=== PATIENT | female | born 1995 | race Caucasian/White ===

== ENCOUNTER → 2020-02-29 13:01 | Outpatient (BNVA) | payer OTHER, SELFPAY | PROVIDERS: Visit Provider Advanced Practice Midwife | DX: Z30.42 Encounter for surveillance of injectable contraceptive (principal) | CPT/HCPCS: 96372 ==

== ENCOUNTER → 2020-05-27 13:09 | Outpatient (BNVA) | payer OTHER, SELFPAY | PROVIDERS: PCP Internal Medicine; Visit Provider Advanced Practice Midwife | DX: Z30.42 Encounter for surveillance of injectable contraceptive (principal) | CPT/HCPCS: 96372; 99211; J1050 ==

== ENCOUNTER 2020-06-03 15:32 | Outpatient (REF) | payer OTHER, SELFPAY | END 2020-06-03 15:33 | disposition home or self-care (01) | LOC: HO.LAB 15:32 | PROVIDERS: Visit Provider Internal Medicine | DX: Z20.822 Contact with and (suspected) exposure to COVID-19 (principal) | CPT/HCPCS: 36415; C9803; U0003 ==

== ENCOUNTER 2020-06-14 15:34 | Outpatient (REF) | payer OTHER, SELFPAY | END 2020-06-14 15:35 | disposition home or self-care (01) | LOC: HO.LAB 15:34 | PROVIDERS: Visit Provider Internal Medicine | DX: Z20.822 Contact with and (suspected) exposure to COVID-19 (principal) | CPT/HCPCS: 36415; C9803; U0003 ==

== ENCOUNTER → 2020-08-12 12:42 | Outpatient (BNVA) | payer OTHER, SELFPAY | PROVIDERS: PCP Internal Medicine; Visit Provider Advanced Practice Midwife | DX: Z30.42 Encounter for surveillance of injectable contraceptive (principal) | CPT/HCPCS: 96372; 99211; J1050 ==

== ENCOUNTER 2020-11-11 10:30 | Outpatient (REF) | payer OTHER, SELFPAY ==
[2020-11-11 17:52] LABS: CT PCR NOT DETECTED (Not Detect.); NG PCR NOT DETECTED (Not Detect.)
== END 2020-11-11 10:31 | disposition home or self-care (01) ==
LOC: HO.LAB 10:30
PROVIDERS: Visit Provider Advanced Practice Midwife
DX: Z30.42 Encounter for surveillance of injectable contraceptive (principal); Z20.2 Contact with and (suspected) exposure to infections with a predominantly sexual mode of transmission
CPT/HCPCS: 87491; 87591; 96372

== ENCOUNTER → 2021-02-10 10:52 | Outpatient (BNVA) | payer OTHER, SELFPAY | PROVIDERS: Visit Provider Advanced Practice Midwife | DX: Z30.42 Encounter for surveillance of injectable contraceptive (principal) | CPT/HCPCS: 96372; 99212 ==

== ENCOUNTER → 2021-05-12 12:58 | Outpatient (BNVA) | payer OTHER, SELFPAY | PROVIDERS: Visit Provider Advanced Practice Midwife | DX: Z30.42 Encounter for surveillance of injectable contraceptive (principal) | CPT/HCPCS: 96372; 99211 ==

== ENCOUNTER → 2021-08-11 13:03 | Outpatient (BNVA) | payer OTHER, SELFPAY | PROVIDERS: PCP Internal Medicine; Visit Provider Advanced Practice Midwife | DX: Z30.42 Encounter for surveillance of injectable contraceptive (principal) | CPT/HCPCS: 96372; 99211 ==

== ENCOUNTER 2021-12-19 14:14 | Outpatient (REF) | payer OTHER, SELFPAY ==
[2021-12-20 07:02] LABS: CT PCR NOT DETECTED (Not Detect.); NG PCR NOT DETECTED (Not Detect.)
== END 2021-12-19 14:15 | disposition home or self-care (01) ==
LOC: HO.LAB 14:14
PROVIDERS: Visit Provider Advanced Practice Midwife
DX: Z01.419 Encounter for gynecological examination (general) (routine) without abnormal findings (principal); R30.0 Dysuria; B96.20 Unspecified Escherichia coli [E. coli] as the cause of diseases classified elsewhere; Z11.3 Encounter for screening for infections with a predominantly sexual mode of transmission; Z11.8 Encounter for screening for other infectious and parasitic diseases
CPT/HCPCS: 87086; 87088; 87186; 87491; 87591; 96372

== ENCOUNTER → 2022-03-13 15:02 | Outpatient (BNVA) | payer OTHER, SELFPAY | PROVIDERS: PCP Internal Medicine; Visit Provider Advanced Practice Midwife | DX: Z30.42 Encounter for surveillance of injectable contraceptive (principal) | CPT/HCPCS: 96372; 99211 ==

== ENCOUNTER → 2022-05-29 12:58 | Outpatient (BNVA) | payer OTHER, SELFPAY | PROVIDERS: PCP Internal Medicine; Visit Provider Advanced Practice Midwife | DX: Z30.42 Encounter for surveillance of injectable contraceptive (principal) | CPT/HCPCS: 96372 ==

== ENCOUNTER → 2022-08-27 15:23 | Outpatient (BNVA) | payer OTHER, SELFPAY | PROVIDERS: PCP Internal Medicine; Visit Provider Advanced Practice Midwife | DX: Z30.42 Encounter for surveillance of injectable contraceptive (principal) | CPT/HCPCS: 96372; 99211 ==

== ENCOUNTER → 2022-11-19 12:53 | Outpatient (BNVA) | payer OTHER, SELFPAY | PROVIDERS: PCP Internal Medicine; Visit Provider Advanced Practice Midwife | DX: Z30.42 Encounter for surveillance of injectable contraceptive (principal) | CPT/HCPCS: 96372; 99211 ==

== ENCOUNTER 2023-02-08 12:59 | Outpatient (AMB) | payer OTHER, SELFPAY ==
--- NOTE | 2023-02-08 13:09 | AM.OFFVISNUR ---
Intake Vital Signs 02/08/23 13:11 Height 4 ft 10 in Weight 59.449 kg BMI 27.4 Intake Visit Reasons: depo Allergies No Known Allergies [No Known Allergies*] Allergy (Verified 12/19/21 13:59) Nursing Note Keely is here for her Depot-Provera inj as scheduled. Pt reports hx of irregular menses and reports she has had moderate bleeding daily since July. Pt informed she may need to be seen if this continues. next annual exam 03/18/23. Office Procedures Depo Questionnaire If YES to any of the following questions, please consult a provider. Date of last injection: 11/30/22 Date of last menstrual period: 07/27/22 Date of last gynecology exam: 12/19/21 Menstrual pattern since last injection has been: Normal Irregular bleeding?: Yes Breast lumps or other breast changes?: No Changes in weight or appetite?: No Depression or changes in mood?: No Abnormal hair growth or loss?: No Skin problems (rash, acne, discoloration)?: No Pain at the injection site?: No Headaches?: No Nervousness?: No Abdominal pain or cramping?: No Dizziness or nausea?: No Fatigue or weakness?: No Decrease in sexual drive?: No Chest pain or shortness of breath?: No Swelling in arms or legs?: No Any other problems or concerns?: hx of irregular menses, has had bleeding since July Form completed by?: John Sauceda LPN Office Meds Depo-Provera 150 mg/mL intramuscular syringe Performing Provider: Libertad Bejarano CNM [place] [facility] [place] [facility] Administered by: Radha Sauceda LPN on 02/08/23 13:11 Dose Route Admin Location Dispensed Lot Number Expiration Date [facility] Genetic Counsellor 150 mg IM rt deltoid 1 mL [id number] 08/14/24 49350-460-77 LUCIEN WHALEY Coding Level of Care Code Established Pt Est Pt Level 1 (25240) Patient Type Established History Problem Focused Exam Problem Focused Medical Decision Making Straight Forward Time Spent (min) 15 Assessment & Plan Assessment & Plan Orders: Orders AMB Medroxyprogesterone Injection Patient Supplied Today Z30.42 - Encounter for surveillance of injectable contraceptive
[2023-02-08 13:11] VITALS: BMI 27.4
== END 2023-02-08 13:09 | disposition home or self-care (01) ==
PROVIDERS: PCP Internal Medicine; Visit Provider Advanced Practice Midwife
DX: Z30.42 Encounter for surveillance of injectable contraceptive (principal)

== ENCOUNTER → 2023-02-08 12:59 | Outpatient (BNVA) | payer OTHER, SELFPAY | PROVIDERS: PCP Internal Medicine; Visit Provider Advanced Practice Midwife | DX: Z30.42 Encounter for surveillance of injectable contraceptive (principal) | CPT/HCPCS: 96372; 99211; J1050 ==

== ENCOUNTER 2023-04-26 13:00 | Outpatient (AMB) | payer OTHER, SELFPAY ==
[2023-04-26 13:35] VITALS: BMI 28.1
--- NOTE | 2023-04-26 13:35 | AM.OFFVISNUR ---
Intake Vital Signs 04/26/23 13:35 Height 4 ft 10 in Weight 134 lb 4 oz BMI 28.1 Intake Visit Reasons: Depo Radiology Supervisor Required: No Allergies No Known Allergies [No Known Allergies*] Allergy (Verified 12/19/21 13:59) Is last menstrual period known: No Post menopausal: No Patient : No Nursing Note Keely is here for her scheduled Depo provera injection. She reports she has been bleeding with cramping x2 months. Bleeding is like a period but has become heavier as well. Pt does not get her menses d/t being on Depo. Discussed with Dr Knutson, will get UPT (negative) and if negative will proceed with injection. Pt tolerated injection well. Pt will need to schedule problem visit for AUB. Pt verbalizes understanding and agrees with plan. No further questions. Office Procedures Depo Questionnaire If YES to any of the following questions, please consult a provider. Date of last injection: 02/08/23 Date of last gynecology exam: 12/19/21 Menstrual pattern since last injection has been: Not Applicable test in office results: Negative Irregular bleeding?: Yes Breast lumps or other breast changes?: No Changes in weight or appetite?: No Depression or changes in mood?: No Abnormal hair growth or loss?: No Skin problems (rash, acne, discoloration)?: No Pain at the injection site?: No Headaches?: No Nervousness?: No Abdominal pain or cramping?: Yes Dizziness or nausea?: No Fatigue or weakness?: No Decrease in sexual drive?: No Chest pain or shortness of breath?: No Swelling in arms or legs?: No Form completed by?: Silva Li director of quantitative research Meds Depo-Provera 150 mg/mL intramuscular syringe Performing Provider: Libertad Bejarano CNM [place] [facility] [place] [facility] Administered by: Silva Li on 04/26/23 13:41 Dose Route Admin Location Dispensed Lot Number Expiration Date [facility] Truck Supervisor 150 mg IM right deltoid 1 mL [id number] 02/13/25 Results AMB Test Urine AMB Test Urine Negative Last Edit by Silva Li on 04/26/23 13:41 Coding Level of Care Code Established Pt Est Pt Level 1 (99911) Patient Type Established History Problem Focused Medical Decision Making Straight Forward Time Spent (min) 20 Assessment & Plan Assessment & Plan Orders: Orders AMB Medroxyprogesterone Injection Patient Supplied Today Z30.42 - Encounter for surveillance of injectable contraceptive
== END 2023-04-26 13:34 | disposition home or self-care (01) ==
PROVIDERS: PCP Internal Medicine; Visit Provider Advanced Practice Midwife
DX: Z30.42 Encounter for surveillance of injectable contraceptive (principal)

== ENCOUNTER → 2023-04-26 13:00 | Outpatient (BNVA) | payer OTHER, SELFPAY | PROVIDERS: PCP Internal Medicine; Visit Provider Advanced Practice Midwife | DX: Z30.42 Encounter for surveillance of injectable contraceptive (principal) | CPT/HCPCS: 96372; 99211; J1050 ==

== ENCOUNTER 2023-07-22 13:03 | Outpatient (AMB) | payer BC, SELFPAY ==
[2023-07-22 13:29] VITALS: BMI 28.6
--- NOTE | 2023-07-22 13:29 | AM.OFFVISNUR ---
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 Pt reports AUB since her last Depo injection 04/26/23 and bleeding stopped 07/15/23. 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 She reports cramping at times as well. Pt denies new medical problems. Pt is scheduled for next AG 08/04/23 with Libertad. Pt tolerated injection well. She will schedule next injection in 12 weeks. Office Procedures Depo Questionnaire If YES to any of the following questions, please consult a provider. Date of last injection: 04/26/23 Date of last gynecology exam: 12/19/21 Menstrual pattern since last injection has been: Not Applicable Irregular bleeding?: Yes Breast lumps or other breast changes?: No Changes in weight or appetite?: No Depression or changes in mood?: No Abnormal hair growth or loss?: No Skin problems (rash, acne, discoloration)?: No Pain at the injection site?: No Headaches?: No Nervousness?: No Abdominal pain or cramping?: Yes Dizziness or nausea?: No Fatigue or weakness?: No Decrease in sexual drive?: No Chest pain or shortness of breath?: No Swelling in arms or legs?: No Any other problems or concerns?: AUB Form completed by?: Silva Li RN Office Meds Depo-Provera 150 mg/mL intramuscular syringe Performing Provider: Libertad Bejarano CNM Performing Location: [facility] [place] [facility] Administered by: Silva Li on 07/22/23 13:39 Dose Route Admin Location Dispensed Lot Number Expiration Date [facility] Purchase Analyst 150 mg IM left deltoid 1 mL [id number] 02/13/25 88206-458-82 MYLAN Coding Level of Care Code Established Pt Est Pt Level 1 (44080) Patient Type Established History Problem Focused Medical Decision Making Straight Forward Time Spent (min) 12 Assessment & Plan Assessment & Plan Orders: Orders AMB Medroxyprogesterone Injection Patient Supplied Today Z30.42 - Encounter for surveillance of injectable contraceptive Medications: Refilled medroxyprogesterone 150 mg IM Q12W 12 weeks 1 mL 0RF
== END 2023-07-22 13:30 | disposition home or self-care (01) ==
LOC: HO.HWS 13:04
PROVIDERS: PCP Internal Medicine; Visit Provider Advanced Practice Midwife
DX: Z30.42 Encounter for surveillance of injectable contraceptive (principal)

== ENCOUNTER → 2023-07-22 13:03 | Outpatient (BNVA) | payer BC, SELFPAY | PROVIDERS: PCP Internal Medicine; Visit Provider Advanced Practice Midwife | DX: Z30.42 Encounter for surveillance of injectable contraceptive (principal) | CPT/HCPCS: 96372; 99211; J1050 ==

== ENCOUNTER 2023-10-12 12:53 | Outpatient (AMB) | payer BC, SELFPAY ==
[2023-10-12 13:04] VITALS: BMI 30.5
--- NOTE | 2023-10-12 13:04 | AM.OFFVISNUR ---
Intake Vital Signs 10/12/23 13:04 Height 4 ft 10 in Weight 66.224 kg BMI 30.5 Intake Visit Reasons: DEPO Allergies No Known Allergies [No Known Allergies*] Allergy (Verified 12/19/21 13:59) Nursing Note Keely is here today for her scheduled Annual exam. She denies any problems. Tolerated inj well follow up in 12 wks for next inj and in November for her AG. Office Procedures Depo Questionnaire If YES to any of the following questions, please consult a provider. Date of last injection: 07/22/23 Date of last menstrual period: 10/07/23 Date of last gynecology exam: 12/19/22 Menstrual pattern since last injection has been: Light Irregular bleeding?: Not Applicable Breast lumps or other breast changes?: No Changes in weight or appetite?: No Depression or changes in mood?: No Abnormal hair growth or loss?: No Skin problems (rash, acne, discoloration)?: No Pain at the injection site?: No Headaches?: No Nervousness?: No Abdominal pain or cramping?: No Dizziness or nausea?: No Fatigue or weakness?: No Decrease in sexual drive?: No Chest pain or shortness of breath?: No Swelling in arms or legs?: No Form completed by?: John Sauceda LPN Office Meds Depo-Provera 150 mg/mL intramuscular syringe Performing Provider: Libertad Bejarano CNM Performing Location[place] [facility] [place] [facility] Administered by: Radha Sauceda LPN on 10/12/23 13:04 Dose Route Admin Location Dispensed Lot Number Expiration Date [facility] Washer Hand 150 mg IM rt. deltoid 1 mL [id number] 01/14/25 76882-404-46 [employer] [facility] Coding Level of Care Code Established Pt Est Pt Level 1 (15416) Patient Type Established History Problem Focused Exam Problem Focused Medical Decision Making Straight Forward Time Spent (min) 20 Assessment & Plan Assessment & Plan Orders: Orders AMB Medroxyprogesterone Injection Patient Supplied Today Z30.42 - Encounter for surveillance of injectable contraceptive Medications: New Depo-Provera (medroxyprogesterone) 150 mg IM ONCE 1 mL 0RF NS Z30.42 - Encounter for surveillance of injectable contraceptive
== END 2023-10-12 13:02 | disposition home or self-care (01) ==
LOC: HO.HWS 12:53
PROVIDERS: PCP Internal Medicine; Visit Provider Advanced Practice Midwife
DX: Z30.42 Encounter for surveillance of injectable contraceptive (principal)

== ENCOUNTER → 2023-10-12 12:53 | Outpatient (BNVA) | payer BC, SELFPAY | PROVIDERS: PCP Internal Medicine; Visit Provider Advanced Practice Midwife | DX: Z30.42 Encounter for surveillance of injectable contraceptive (principal) | CPT/HCPCS: 96372; 99211; J1050 ==

== ENCOUNTER 2023-11-26 13:00 | Outpatient (REF) | payer BC, SELFPAY | END 2023-11-26 13:01 | disposition home or self-care (01) | LOC: HO.LNP 13:00 | PROVIDERS: PCP Internal Medicine; Visit Provider Advanced Practice Midwife | DX: N89.8 Other specified noninflammatory disorders of vagina (principal); R39.89 Other symptoms and signs involving the genitourinary system; R31.9 Hematuria, unspecified | CPT/HCPCS: 81003 ==

== ENCOUNTER 2023-11-26 13:00 | Outpatient (AMB) | payer BC, SELFPAY ==
[2023-11-26 13:04] VITALS: BMI 30.4
--- NOTE | 2023-11-26 13:04 | A.OFFVIS_ITS ---
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 Doing well with no concerns: bladder fullness after emptying. She tries to eat healthy and stays active with exercise. Bled in July daily for 2 months. On Depo. She denies any contraindications to control such as: migraines with aura, history of DVT or pulmonary emboli, high blood pressure, liver disease, thrombolic disorders, Lupus, +ADDIS, breast cancer, or smoking. Currently is sexually active. Admits to internal irritation, thick and clumpy discharge at times. STI screening offered; she accepts. Denies family history of breast, ovarian or colon cancer. [facility] Medical History Tibia/fibula fracture Depression with anxiety PTSD (post-traumatic stress disorder) Insomnia Asthma ADHD Family History Father Cardiac disease Diabetes Paternal Grandfather Cardiac disease Blood clotting disorder Mother Immune deficiency disorder Social History Household Members: Family Housing: House Alcohol intake: never Patient Tobacco Use Status: Never used Tobacco Sexual orientation: Straight/Heterosexual Gender identity: Female Female Reproductive History Menstrual Age of Menarche: 13 control method: progesterone injection Total pregnancies: 2 Full term: 1 Number of Living Children: 1 Ab induced: 1 Date of last pap smear: 09/05/19 Review of Systems Const All systems reviewed & are unremarkable except as noted in HPI and below Reports as per HPI Eyes Reports no additional complaints ENT Reports no additional complaints Card Reports no additional complaints Resp Reports no additional complaints GI Reports as per HPI and Reports no additional complaints Reports as per HPI Musc Reports no additional complaints Skin/Breast Reports as per HPI Neuro Reports no additional complaints Psych Reports no additional complaints Endo Reports no additional complaints Leif/Lymph Reports no additional complaints Aller/Immun Reports no additional complaints Physical Exam Vital Signs: BMI result Body Mass Index 30.4 Const General: cooperative, healthy appearing, no acute distress, well developed and alert Orientation/consciousness: patient oriented x3 HEENT Head: Yes normal to inspection Eyes General: appearance normal, both eyes and all related structures Neck Neck: Yes normal visual inspection Thyroid: Thyroid normal Chest Chest palpation & inspection: normal inspection of the chest and other (no puckering, dimpling, peau de orange, retraction, discharge, masses) Breast/axilla inspection: normal inspection of the breasts Breast/axilla palpation: normal palpation of the breasts Resp Effort & Inspection: normal respiratory effort GI Inspection: Yes normal to inspection Palpation (GI): Soft to palpation Rectal Exam - Female: deferred General: Yes bladder normal to palpation External Female Exam: normal external appearance and normal appearance of the urethra Speculum Exam - Vagina: normal appearance of the vagina, normal palpation, normal vaginal discharge and erythematous Speculum Exam - Cervix: normal appearance of the cervix and normal palpation Bimanual exam- vagina & uterus: normal bimanual exam, normal palpation, uterine size normal, bladder normal to palpation, normal palpation and non-tender Bimanual Exam- Adnexa, other: no masses Skin General skin exam: no rashes or lesions noted Rashes: no rashes Neuro General: patient oriented x3 Cognition (Neuro): normal cognition Extrem General: Yes normal to inspection Psych Attitude: cooperative Thought process: Normal thought process present Results AMB Urinalysis, Automated UA Leukoctes 2 Georgette/uL Last Edit by ADAM Yarbrough on 11/26/23 14:04 UA Nitrite Negative Last Edit by ADAM Yarbrough on 11/26/23 14:04 UA Urobilinogen 0 mg/dL Last Edit by ADAM Yarbrough on 11/26/23 14:0 4 UA Protein 0 mg/dL Last Edit by ADAM Yarbrough on 11/26/23 14:04 UA pH 5.0 Last Edit by ADAM Yarbrough on 11/26/23 14:04 UA Blood 3 John/uL Last Edit by ADAM Yarbrough on 11/26/23 14:04 UA Specific Johnston 1.025 Last Edit by Connie Mendesa, RMA on 11/26/23 14:04 UA Ketone Negative Last Edit by Connie ADAM Morgan on 11/26/23 14:04 UA Bilirubin 0 mg/dL Last Edit by Connie ADAM Morgan on 11/26/23 14:04 UA Glucose 0 mg/dL Last Edit by Connie Lemon ADAM Simental on 11/26/23 14:04 Results Reviewed Results Reviewed: Laboratory Last Values Urine pH (Auto) 5.0 11/26/23 13:43 Specific Johnston (Auto) 1.025 11/26/23 13:43 Urine Protein (Auto) 0 mg/dL 11/26/23 13:43 Glucose (UA)(Auto) 0 mg/dL 11/26/23 13:43 Urine Ketones (Auto) Negative 11/26/23 13:43 Urine Blood (Auto) 3 John/uL 11/26/23 13:43 Urine Nitrite (Auto) Negative 11/26/23 13:43 Urine Bilirubin (Auto) 0 mg/dL 11/26/23 13:43 Urine Urobilinogen (Auto) 0 mg/dL 11/26/23 13:43 Leukocyte Esterase (Auto) 2 Georgette/uL 11/26/23 13:43 Assessment & Plan Assessment & Plan (1) Encounter for well woman exam with routine gynecological exam: Code(s): Z01.419 - Encounter for gynecological examination (general) (routine) without abnormal findings Category: Medical Plan Discussed: Current recommendations for pap smears per ASCCP guidelines. Breast awareness and periodic breast exams. Maintain a healthy lifestyle including a well balanced diet and routine exercise. Use condoms for STI and prevention. control hormone use warnings: go to ER if and loss of vision, blindness, severe headache, chest pain or difficulty breathing, severe abdominal pain, or any pain or swelling in an extremity. Patient verbalizes understanding and agrees to the plan of care. She was given opportunity to ask questions and all questions were answered to the best of my ability. RTO in one year for annual ob/gyn physician examination. This note is constructed using voice recognition software. While every effort has been made to ensure accuracy, production roustabout errors may have been included. Orders: Orders CT NG by PCR Today N89.8 - Other specified noninflammatory disorders of vagina AMB Urinalysis Automated Today N89.8 - Other specified noninflammatory disorders of vagina, R39.89 - Other symptoms and signs involving the genitourinary system Urine Culture Today N89.8 - Other specified noninflammatory disorders of vagina, R31.9 - Hematuria, unspecified, R39.89 - Other symptoms and signs involving the genitourinary system Bacterial Vaginosis Panel Today N89.8 - Other specified noninflammatory disorders of vagina PAP rfx HPV E6/E7 and 16 18/45 Today Z01.419 - Encounter for gynecological examination (general) (routine) without abnormal findings Referrals Urology Referral R39.89 - Other symptoms and signs involving the genitourinary system Medications: Refilled medroxyprogesterone 150 mg IM [id number] 3 months 1 mL 4RF Coding Level of Care Code Est Pt Prev Care 18-39y(85336) Diagnoses Encounter for well woman exam with routine gynecological exam Z01.419
== END 2023-11-26 13:52 | disposition home or self-care (01) ==
PROVIDERS: PCP Internal Medicine; Visit Provider Advanced Practice Midwife
DX: R39.89 Other symptoms and signs involving the genitourinary system (principal); N89.8 Other specified noninflammatory disorders of vagina; Z01.419 Encounter for gynecological examination (general) (routine) without abnormal findings
CPT/HCPCS: 99395

== ENCOUNTER 2023-11-26 13:43 | Outpatient (REF) | payer BC, SELFPAY ==
[2023-11-26 18:10] LABS: Bacterial Vaginosis PCR NEGATIVE (Negative); Candida Group PCR NOT DETECTED (Not Detect); Candida glab krusei PCR NOT DETECTED (Not Detect); Trichomonas vaginalis PCR NOT DETECTED (Not Detect)
[2023-11-26 18:34] LABS: CT PCR NOT DETECTED (Not Detect.); NG PCR NOT DETECTED (Not Detect.)
== END 2023-11-26 13:44 | disposition home or self-care (01) ==
LOC: HO.LAB 13:43
PROVIDERS: Visit Provider Advanced Practice Midwife
DX: Z12.4 Encounter for screening for malignant neoplasm of cervix (principal); R39.89 Other symptoms and signs involving the genitourinary system; R31.9 Hematuria, unspecified; N89.8 Other specified noninflammatory disorders of vagina
CPT/HCPCS: 0352U; 36415; 87086; 87147; 87491; 87591; 87625; 88175

== ENCOUNTER 2024-01-03 13:06 | Outpatient (AMB) | payer BC, SELFPAY ==
[2024-01-03 13:15] VITALS: BMI 30.9
--- NOTE | 2024-01-03 13:15 | AM.OFFVISNUR ---
Vital Signs 01/03/24 13:15 Height 4 ft 10 in Weight 67.132 kg BMI 30.9 Intake Visit Reasons: DEPO Allergies No Known Allergies [No Known Allergies*] Allergy (Verified 11/26/23 13:06) Nursing Note Keely is here today for her scheduled Depo-Provera inj. She denies any problems or concerns. Return in 12 wks for next inj. Office Procedures Depo Questionnaire If YES to any of the following questions, please consult a provider. Date of last injection: 10/12/23 Date of last gynecology exam: 11/26/23 Menstrual pattern since last injection has been: Not Applicable Irregular bleeding?: No Breast lumps or other breast changes?: No Changes in weight or appetite?: No Depression or changes in mood?: No Abnormal hair growth or loss?: No Skin problems (rash, acne, discoloration)?: No Pain at the injection site?: No Headaches?: No Nervousness?: No Abdominal pain or cramping?: No Dizziness or nausea?: No Fatigue or weakness?: No Decrease in sexual drive?: No Chest pain or shortness of breath?: No Swelling in arms or legs?: No Form completed by?: EASTON Alcala Office Meds Depo-Provera 150 mg/mL intramuscular syringe Performing Provider: Libertad Bejarano CNM [place] [facility] [place] [facility] Administered by: Radha Sauceda LPN on 01/03/24 13:16 Dose Route Admin Location Dispensed Lot Number Expiration Date [facility] Metal 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
== END 2024-01-03 13:21 | disposition home or self-care (01) ==
LOC: HO.HWS 13:06
PROVIDERS: PCP Internal Medicine; Visit Provider Advanced Practice Midwife
DX: Z30.42 Encounter for surveillance of injectable contraceptive (principal)

== ENCOUNTER → 2024-01-03 13:06 | Outpatient (BNVA) | payer BC, SELFPAY | PROVIDERS: PCP Internal Medicine; Visit Provider Advanced Practice Midwife | DX: Z30.42 Encounter for surveillance of injectable contraceptive (principal) | CPT/HCPCS: 96372; 99211; J1050 ==

== ENCOUNTER 2024-03-30 10:57 | Outpatient (AMB) | payer BC, SELFPAY ==
[2024-03-30 11:40] VITALS: BMI 29.7
--- NOTE | 2024-03-30 11:40 | AM.OFFVISNUR ---
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 No c/o. Pt tolerated injection well. She will schedule her next injection in 12 weeks. Pt verbalizes understanding and agrees with plan. No further questions. Office Procedures Depo Questionnaire If YES to any of the following questions, please consult a provider. Date of last injection: 01/03/24 Date of last gynecology exam: 11/26/23 Menstrual pattern since last injection has been: Not Applicable Irregular bleeding?: No Breast lumps or other breast changes?: No Changes in weight or appetite?: No Depression or changes in mood?: No Abnormal hair growth or loss?: No Skin problems (rash, acne, discoloration)?: No Pain at the injection site?: No Headaches?: No Nervousness?: No Abdominal pain or cramping?: No Dizziness or nausea?: No Fatigue or weakness?: No Decrease in sexual drive?: No Chest pain or shortness of breath?: No Swelling in arms or legs?: No Form completed by?: Silva Li RN Office Meds Depo-Provera 150 mg/mL intramuscular syringe Performing Provider: Libertad Bejarano CNM Performing Location[place] [facility] [place] [facility] Administered by: Silva Li on 03/30/24 11:43 Dose Route Admin Location Dispensed Lot Number Expiration Date [facility] Forestry Fire Aide 150 mg IM left deltoid 1 mL [id number] 06/16/25 35070-380-95 [employer] Assessment & Plan Assessment & Plan (1) Depo-Provera contraceptive status: Code(s): Z30.42 - Encounter for surveillance of injectable contraceptive Category: Medical Orders: Orders AMB Medroxyprogesterone Injection Patient Supplied Today Z30.42 - Encounter for surveillance of injectable contraceptive Medications: New Depo-Provera (medroxyprogesterone) 150 mg IM ONCE 1 mL 0RF NS Z30.42 - Encounter for surveillance of injectable contraceptive Patient Instructions: Pt will schedule next Depo injection in 12 weeks
== END 2024-03-30 11:35 | disposition home or self-care (01) ==
LOC: HO.HWS 10:57
PROVIDERS: PCP Internal Medicine; Visit Provider Advanced Practice Midwife
DX: Z30.42 Encounter for surveillance of injectable contraceptive (principal)

== ENCOUNTER → 2024-03-30 10:57 | Outpatient (BNVA) | payer BC, SELFPAY | PROVIDERS: PCP Internal Medicine; Visit Provider Advanced Practice Midwife | DX: Z30.42 Encounter for surveillance of injectable contraceptive (principal) | CPT/HCPCS: 96372; 99211; J1050 ==

== ENCOUNTER → 2024-06-27 11:07 | Outpatient (BNVA) | payer BC, SELFPAY | PROVIDERS: PCP Internal Medicine; Visit Provider Advanced Practice Midwife | DX: Z30.42 Encounter for surveillance of injectable contraceptive (principal) | CPT/HCPCS: 96372; 99211; J1050 ==

== ENCOUNTER 2024-09-20 14:41 | Outpatient (AMB) | payer BC, SELFPAY ==
[2024-09-20 15:29] VITALS: BMI 31.3
--- NOTE | 2024-09-20 15:29 | MHC.OFFVIS ---
Vital Signs 09/20/24 15:29 Height 4 ft 10 in Weight 150 lb BMI 31.3 Intake Visit Reasons: Depo Allergies No Known Allergies [No Known Allergies*] Allergy (Verified 11/26/23 13:06) PFSH Medical History Tibia/fibula fracture Depression with anxiety PTSD (post-traumatic stress disorder) Insomnia Asthma ADHD Family History Father Cardiac disease Diabetes Paternal Grandfather Cardiac disease Blood clotting disorder Mother Immune deficiency disorder Social History Household Members: Family Housing: House Alcohol intake: never Patient Tobacco Use Status: Never used Tobacco Sexual orientation: Straight/Heterosexual Gender identity: Female Female Reproductive History Menstrual Age of Menarche: 13 Physical Exam Vital Signs: BMI result Body Mass Index 31.3 Office Procedures Depo Questionnaire If YES to any of the following questions, please consult a provider. Date of last injection: 06/27/24 Date of last gynecology exam: 11/26/23 Menstrual pattern since last injection has been: Not Applicable Irregular bleeding?: No Breast lumps or other breast changes?: No Changes in weight or appetite?: No Depression or changes in mood?: No Abnormal hair growth or loss?: No Skin problems (rash, acne, discoloration)?: No Pain at the injection site?: No Headaches?: No Nervousness?: No Abdominal pain or cramping?: No Dizziness or nausea?: No Fatigue or weakness?: No Decrease in sexual drive?: No Chest pain or shortness of breath?: No Swelling in arms or legs?: No Any other problems or concerns?: none Form completed by?: Cristy Lee LPN Office Meds Depo-Provera 150 mg/mL intramuscular syringe Performing Provider: Libertad Bejarano CNM Performing Location: [facility] [place] [facility] Administered by: Cristy Lee LPN on 09/20/24 15:33 Dose Route Admin Location Dispensed Lot Number Expiration Date [employer]DC Collection Coordinator 150 mg IM rt deltoid 1 mL [id number] 09/20/25 23398-530-41 MYLAN Assessment & Plan Assessment & Plan (1) Depo-Provera contraceptive status: Code(s): Z30.42 - Encounter for surveillance of injectable contraceptive Category: Medical Plan Pt here at scheduled time for depo provera. Pt denies any problem or concerns. follow up in 12 weeks for next injection. Orders: Orders AMB Medroxyprogesterone Injection Patient Supplied Today Z30.42 - Encounter for surveillance of injectable contraceptive Coding Level of Care Code Established Pt Est Pt Level 1 (92281) Patient Type Established Medical Decision Making Straight Forward Diagnoses Depo-Provera contraceptive status Z30.42 Time Spent (min) 20
--- OUTSIDE RECORDS SUMMARY | 2024-09-20 15:48 | XMS_ITS | Encounter Summary ---
Author Organization [facility] Address [address] [place] [address] Phone Care Team Providers Care Ict Account Manager Name Role Phone Monika Henley NP Primary Care Provider [phone] Encounter Details Date Type Department Care Team (Late st Contact Info) Description 12/31/2016 Conversion Encounter [facility] - [address] [address] Social History Tobacco Use Types Packs/Day Years Used Date Smoking Tobacco: Never Assessed Comments Unknown Sex and Gender Information Value Date Recorded Sex Assigned at Not on file Legal Sex Female 4:55 PM EDT Gender Identity Not on file Sexual Orientation Not on file documented as of this encounter Plan of Treatment Not on file documented as of this encounter Visit Diagnoses Not on filedocumented in this encounter Care Teams Ict Account Manager Relationship Specialty Start Date End Date Monika Henley NP PCP - General 12/25/16 documented as of this encounter
--- OUTSIDE RECORDS SUMMARY | 2024-09-20 15:48 | XMS_ITS | Encounter Summary ---
Author Organization [facility] Address [address] [place], [place] [address] Phone Care Team Providers Care Bowling Alley Attendant Name Role Phone Monika Henley NP Primary Care Provider [phone] Encounter Details Date Type Department Care Team (Late st Contact Info) Description 07/23/2015 Documentation [facility] [place] Family Medicine [address] [place] [address] Family Medicine, Physician [address] [place], [place] [phone] Social History Tobacco Use Types Packs/Day Years [...] on filedocumented in this encounter Care Teams Bowling Alley Attendant Relationship Specialty Start Date End Date Monika Henley NP PCP - General 12/25/16 documented as of this encounter
--- OUTSIDE RECORDS SUMMARY | 2024-09-20 15:48 | XMS_ITS | Encounter Summary ---
Author Organization [facility] Address [address] [place], [place] [address] Phone Care Team Providers Care Shank Threader Name Role Phone Monika Henley NP Primary Care Provider [phone] Encounter Details Date Type Department Care Team (Late st Contact Info) Description 11/20/2014 Documentation [facility] [place] [address] [place] [address] Family Medicine, Physician [address] [place], [place] [phone] Social History Tobacco Use Types Packs/Day Years [...] on filedocumented in this encounter Care Teams Shank Threader Relationship Specialty Start Date End Date Monika Henley NP PCP - General 12/25/16 documented as of this encounter
--- OUTSIDE RECORDS SUMMARY | 2024-09-20 15:48 | XMS_ITS | Encounter Summary ---
Author Organization [facility] Address [address] [place], [place] [address] Phone Care Team Providers Care Treasurer Savings Bank Name Role Phone Monika Henley NP Primary Care Provider [phone] Encounter Details Date Type Department Care Team (Late st Contact Info) Description 08/19/2012 Documentation [facility] [place] [address] [place] [address] Family Medicine, Physician [address] [place], [place] [phone] Social History Tobacco Use Types Packs/Day Years [...] on filedocumented in this encounter Care Teams Treasurer Savings Bank Relationship Specialty Start Date End Date Monika Henley NP PCP - General 12/25/16 documented as of this encounter
--- OUTSIDE RECORDS SUMMARY | 2024-09-20 15:48 | XMS_ITS | Encounter Summary ---
Author Organization [facility] Address [address] [place], [place] [address] Phone Care Team Providers Care Instructor Of Spanish Name Role Phone Monika Henley NP Primary Care Provider [phone] Encounter Details Date Type Department Care Team (Late st Contact Info) Description 01/23/[address] [facility] [place] [address] [place] [address] Family Medicine, Physician [address] [place], [place] [phone] Social History Tobacco Use Types Packs/Day Years [...] on filedocumented in this encounter Care Teams Instructor Of Spanish Relationship Specialty Start Date End Date Monika Henley NP PCP - General 12/25/16 documented as of this encounter
--- OUTSIDE RECORDS SUMMARY | 2024-09-20 15:48 | XMS_ITS | Encounter Summary ---
Author Organization [facility] Address [address] [place], [place] [address] Phone Care Team Providers Care News Clipping Cutter Name Role Phone Monika Henley NP Primary Care Provider [phone] Encounter Details Date Type Department Care Team (Late st Contact Info) Description 11/30/2016 Documentation [facility] [place] Family Medicine [address] [place] [address] Family Medicine, Physician [address] [place], [place] [phone] Social History Tobacco Use Types Packs/Day Years [...] on filedocumented in this encounter Care Teams News Clipping Cutter Relationship Specialty Start Date End Date Monika Henley NP PCP - General 12/25/16 documented as of this encounter
--- OUTSIDE RECORDS SUMMARY | 2024-09-20 15:48 | XMS_ITS | Encounter Summary ---
Author Organization [facility] Address [address] [place], [place] [address] Phone Care Team Providers Care Lawn Specialist Name Role Phone Monika Henley NP Primary Care Provider [phone] Encounter Details Date Type Department Care Team (Late st Contact Info) Description 04/25/2012 Documentation [facility] [place] [address] [place] [address] Family Medicine, Physician [address] [place], [place] [phone] Social History Tobacco Use Types Packs/Day Years [...] on filedocumented in this encounter Care Teams Lawn Specialist Relationship Specialty Start Date End Date Monika Henley NP PCP - General 12/25/16 documented as of this encounter
--- OUTSIDE RECORDS SUMMARY | 2024-09-20 15:48 | XMS_ITS | Clinical Summary ---
Author Organization [facility] Address [address] [place], [place] [address] Phone Care Team Providers Care Inspector And Adjuster Golf Club Head Name Role Phone Monika Henley ANT Primary Care Provider [phone] Medications Beclomethasone Diprop HFA (QVAR REDIHALER) 80 MCG/ACT aerosolIndication s:Moderate persistent asthma without complication Inhale 2 puffs 2 (two) times a day. 1 Inhaler 3 07/13/2017 Active albuterol HFA (PROAIR HFA) 108 (90 BASE) MCG/ACT inhalerIndication s:Mild intermittent asthma without complication Inhale 2 puffs every 4 (four) hours as needed for wheezing. 1 Units 09/29/2017 Active Immunizations Immunization Administration Dates Next Due DTaP 5 11/08/2000, 8,04/16/1997,03/10,1996 HPV, Quadrivalent 08/17/2012,05/04/2011,01/07/20 10 Hep A, Adult 09/13/2015 Hep A, ped/adol 09/21/2013 Hep B, ped/adol 02/28/1997,1996,1996 Hib (PRP-T) 04/18/1998, 7,03/10/1997,10/15 IPV 11/08/2000, 8,02/14/1997,10/15 Influenza Split 05/04/2011,01/06/2010 Influenza, injectable, quadrivalent 04/17/2015 Influenza, injectable, quadr ivalent, preservative free 01/19/2014 Influenza, injectable, trivalent 02/24/2006,07/1997 MMR 11/15/2001,09/25/1997 Meningococcal Conj (Menactra) MCV4P 09/13/2015,0 01/06/2010 Tdap 01/06/2010 Varicella 08/17/2012,09/25/1997 Family History Relation Name Status Comments Father Father: Diabete s mellitus type 2 Social History Tobacco Use Types Packs/Day Years Used Date Smoking Tobacco: Never Comments:Never smoker Comments Unknown Sex and Gender Information Value Date Recorded Sex Assigned at Not on file Legal Sex Female 4:55 PM EDT Gender Identity Not on file Sexual Orientation Not on file Last Filed Vital Signs Vital Sign Reading Time Taken Comments Blood Pressure 99/70 01/01/2017 12:00 AM EDT Pulse 92 01/01/2017 12:00 AM EDT Temperature 37 ??C (98.6 ??F) 06/22/2014 12:00 AM EST Respiratory Rate - - Oxygen Saturation - - Inhaled Oxygen Concentration - - Weight 46.4 kg (102 lb 6.4 oz) 01/01/2017 12:00 AM EDT Height 148.6 cm (4' 10.5 ) 01/01/2017 12:00 AM E DT Body Mass Index 21.04 01/01/2017 12:00 AM EDT Plan of Treatment Health Maintenance Due Date Last Done Comments DTaP,Tdap,and Td Vaccines (7 - Td or Tdap) 01/07/2020 01/06/2010, 11/08/2000, 04/18/1998, Additional history exists Influenza Vaccines (#1) 2023 04/17/20 15, 01/19/2014, 05/04/2011, Additional history exists COVID-19 Vaccine ( season) 2024 Hepatitis B Vaccines Completed 02/28/1997, 1996, 1996 HIB Vaccines Completed 04/18/1998, 04/17, 03/10/1997, Additional history exists IPV Vaccines Completed 11/08/2000, 09/14, 02/14/1997, Additional history exists MMR Vaccines Completed 11/15/2001, 09/25/1997 HPV Vaccines Completed 08/17/2012, 04/16, 01/06/2010 Varicella Vaccines Completed 08/17/2012, 09/25/1997 Hepatitis A Vaccines Completed 09/13/2015, 05/08/20 14 Meningococcal Vaccine Aged Out 09/13/2015, 010 No longer eligible based on patient's age to complete this topic Men B Vaccine Aged Out No longer elig ible based on patient's age to complete this topic Pneumococcal Vaccine Aged Out No long er eligible based on patient's age to complete this topic Procedures * Due to [employer] law, this organization might not be sharing sensitive test results. Procedure Name Priority Date/Time Associated Diagnosis Comments CHLAMYDIA AND GONORRHEA, AMPLIFIED Routine 01/04/2017 2:18 PM EDT from Last 3 Months or Most Recently Relevant to Health Maintenance Results * Due to [employer] law, this organization might not be sharing sensitive test results. * Chlamydia and Gonorrhoea, Amplified (01/04/2017 2:18 PM EDT) URINE GC AMP PROBE NEGATIVE (NEG) [facility] Comment: No Neisseria Gonorrhoeae RNA detected in this patient's sample (REFERENCE RANGE/NORMAL VALUE: NOT DETECTED) NOTE: This test uses plate washer-mediated amplification method to detect rRNA from C.Trachomatis and N.Gonorrhoeae. A negative result does not preclude infection. In the case of a negative urine result, testing of an endocervical(female) or urethral(male) specimen is recommended if there is high clinical suspicion of infection. Due to very high sensitivity of Nucleic Acid Amplification Test, false positive results may occur. Therefore, specimen handling is extremely important. In patients in whom the disease is unlikely, additional sample for testing should be considered after an initial positive result. The performance characteristics of this test have not been evaluated in children. The Aptima Combo2 assay is not intended for the evaluation of suspected sexual abuse or for other medico-legal indications. The ordering provider should assess if the patient had consensual sex without risk of sexual abuse. Consult the [facility] if needed. Contact phone number . Therapeutic failure or success cannot be determined with the Aptima Combo2 assay since nucleic acid may persist following appropriate antimicrobial therapy. The Centers for Disease Control and Prevention (CDC) recommends confirmatory retesting using culture or a different nucleic acid amplification test when positive results occur, if indicated. Testing performed or reported by [facility], a Service of [facility], [place] [address] CLIA ??[id number] Michael Casillas MD, PhD, Boom Crane Operator URINE CHLAMYDIA AMP PROBE NEGATIVE (NEG) [facility] Comment: No Chlamydia Trachomatis RNA detected in this patient's sample (REFERENCE RANGE/NORMAL VALUE: NOT DETECTED) 01/04/2017 2:18 PM EDT Narrative [facility] - 01/04/2017 2:18 PM EDT URINE CHLAMYDIA GC AMP PROBE us Monika Henley NP LAB MICROBIOLOGY - GENERAL ORDER KYRA Final Result [facility] [address] [place] [address], from Last 3 Months or Most Recently Relevant to Health Maintenance Insurance [facility] NON PCC Care Teams Inspector And Adjuster Golf Club Head Relationship Specialty Start Date End Date Monika Henley NP PCP - General 12/25/16
--- OUTSIDE RECORDS SUMMARY | 2024-09-20 15:48 | XMS_ITS | Clinical Summary ---
Author Organization [facility] Address [address] [place] [address] Care Team Providers Care Marine Gear Keeper Name Role Phone Jacinta Mayes MD Primary Care Provider [phone] Allergies No known active allergies Medications amphetamine-de xtroamphetamin e XR (Adderall XR) 30 mg 24 hr capsule TAKE ONE CAPSULE BY MOUTH EVERY MORNING 06/09/19 22 Active amphetamine-de xtroamphetamin e (ADDERALL) 20 mg tablet TAKE 1 TABLET BY MOUTH EVERY AFTERNOON AT 1 P.M. 06/09/19 22 Active escitalopram (LEXAPRO) 5 mg tablet TAKE ONE TABLET BY MOUTH EVERY DAY 06/09/19 22 Active medroxyPROGEST ERone 150 mg/mL injection INJECT INTRAMUSCULARLY 150MG EVERY 3 MONTHS. 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 Villagomez) scanned 01/18 nl ultrasound kidney/bladder Immunizations Name Administration Dates Next Due DTaP (Infanrix) 6wks to less than 7yo ,04/18/1998,04/16/1997,1996,1996 Hepatitis B Pediatric (Enger ix B; Recombivax HB) to less than 20 yo 02/28/1997,1996,1996 HiB 04/18/1998, 7,03/10/1997,1996 IPV Inactivated polio (Ipol) 6wks and older 11/08/2000 Influenza trivalent, with preservative (Fluzone; Afluria) 6mo and older 02/24/2006,04/18/1998 MMR, measles mumps and rubel la Live (Priorix; M-M-R II) 12mo and older 11/15/2001,09/25/1997 OPV 09/25/1997,02/14/1997,1996 Varicella live (Varivax) 12m o and older 09/25/1997 Surgical History Surgery Date Site/Laterality Comments OTHER SURGICAL HISTORY PROCEDURE: ---- OTHER ----; COMMENT: ORIF right lower extremity age 14 had all hardware removed Medical History Medical History Date Comments Anxiety and depression 11/21/2018 DX:Anxiet y and depression Vitamin D deficiency 11/22/2018 DX:Vitamin D deficiency Family History Medical History Relation Name Comments Obesity Brother Diabetes Father OA arthritis Thyroid disease Maternal Grandmother Stomach cancer Mother Relation Name Status Comments Brother Alive 1991 Mayur Father Alive 1970 Mayur Maternal Grandmother Mother 1970 xiomara, , autoimmune disorder, sepsis Social History Tobacco Use Types Packs/Day Years Used Date Smoking Tobacco: Passive Smo ke Exposure - Never Smoker Smokeless Tobacco: Never Alcohol Use Standard Drinks/Week Comments No 0 (1 standard drink = 0.6 oz pur e alcohol) Comments Unknown Sex and Gender Information Value Date Recorded Sex Assigned at Not on file Legal Sex Female 11:09 AM EST Gender Identity Not on file Sexual Orientation Not on file Obstetrics History Plan of Treatment Health Maintenance Due Date Last Done Comments DTaP,Tdap,and Td Vaccines (6 - Tdap) 08/22/2007 11/08/2000, 04/18/1998, 04/18/1998, Additional history exists Pneumococcal Vaccine: Pediatrics (0 to 5 Years) and At-Risk Patients (6 to 64 Years) (1 of 2 - PCV) 08/22/2015 Cervical Cancer Screening: Pap Smear 2017 Depression Screening 04/14/2022 HIV Screening 04/14/2022 Hepatitis C Screening 04/14/2022 Social Influencers of Health Screening 04/14/2022 COVID-19 Vaccine ( season) 2024 Influenza Vaccine (Season Ended) 2025 02/24/2006, 04/18/1998 Hepatitis B Vaccines Completed 02/28/1997, 1996, 1996 Varicella Vaccines Aged Out 09/25/1997 No longer eligible based on patient's age to complete this topic HIB Vaccines Completed 04/18/1998, 07/1997, 05/14/1997, Additional history exists IPV Vaccines Completed 11/08/2000, 07/1997, 09/25/1997, Additional history exists MMR Vaccines Completed 11/15/2001, 09/25/1997 HPV Vaccines Aged Out No longer eligi ble based on patient's age to complete this topic Hepatitis A Vaccines Aged Out No long er eligible based on patient's age to complete this topic Meningococcal ACWY Vaccine Aged Out N o longer eligible based on patient's age to complete this topic Meningococcal B Vaccine Aged Out No l onger eligible based on patient's age to complete this topic RSV Immunization Patients Under 20 months Aged Out No longer eligible based on patient's age to complete this topic Care Teams Marine Gear Keeper Relationship Specialty Start Date End Date Jacinta Mayes MD [address] [place] [address] PCP - General Internal Medicine 04/14/21
== END 2024-09-20 15:31 | disposition home or self-care (01) ==
LOC: HO.HWS 14:41
PROVIDERS: PCP Internal Medicine
DX: Z30.42 Encounter for surveillance of injectable contraceptive (principal)

== ENCOUNTER → 2024-09-20 14:41 | Outpatient (BNVA) | payer BC, SELFPAY | PROVIDERS: PCP Internal Medicine | DX: Z30.42 Encounter for surveillance of injectable contraceptive (principal) | CPT/HCPCS: 96372; 99211; J1050 ==

== ENCOUNTER 2024-09-25 14:30 | Outpatient (REF) | payer BC, SELFPAY ==
--- OUTSIDE RECORDS SUMMARY | 2024-09-25 15:42 | XMS_ITS | Encounter Summary ---
Author Organization [facility] Address [address] [place], [place] [address] Phone Care Team Providers Care Installment Loan Collector Name Role Phone Monika Henley NP Primary Care Provider [phone] Encounter Details Date Type Department Care Team (Late st Contact Info) Description 04/25/2012 Documentation [facility] [place] [address] [place] [address] Family Medicine, Physician [address] [place], [place] [phone] Social History Tobacco Use Types Packs/Day Years [...] on filedocumented in this encounter Care Teams Installment Loan Collector Relationship Specialty Start Date End Date Monika Henley NP PCP - General 12/25/16 documented as of this encounter
--- OUTSIDE RECORDS SUMMARY | 2024-09-25 15:43 | XMS_ITS | Encounter Summary ---
Author Organization [facility] Address [address] [place] [address] Phone Care Team Providers Care Senior Financial Reporting Accountant Name Role Phone Monika Henley NP Primary Care Provider [phone] Encounter Details Date Type Department Care Team (Late st Contact Info) Description 12/31/2016 Conversion Encounter [facility] - [address] [address] Social History Tobacco Use Types Packs/Day Years [...] on filedocumented in this encounter Care Teams Senior Financial Reporting Accountant Relationship Specialty Start Date End Date Monika Henley NP PCP - General 12/25/16 documented as of this encounter
--- OUTSIDE RECORDS SUMMARY | 2024-09-25 15:43 | XMS_ITS | Encounter Summary ---
Author Organization [facility] Address [address] [place], [place] [address] Phone Care Team Providers Care Medical Assembler Name Role Phone Monika Henley NP Primary Care Provider [phone] Encounter Details Date Type Department Care Team (Late st Contact Info) Description 01/23/2014 Documentation [facility] [place] Medicine [address] [place] [address] Family Medicine, Physician [address] [place], [place] [phone] Social History Tobacco Use Types Packs/Day Years [...] on filedocumented in this encounter Care Teams Medical Assembler Relationship Specialty Start Date End Date Monika Henley NP PCP - General 12/25/16 documented as of this encounter
--- OUTSIDE RECORDS SUMMARY | 2024-09-25 15:43 | XMS_ITS | Encounter Summary ---
Author Organization [facility] Address [address] [place], [place] [address] Phone Care Team Providers Care Associate Sales Manager Name Role Phone Monika Henley NP Primary Care Provider [phone] Encounter Details Date Type Department Care Team (Late st Contact Info) Description 07/23/2015 Documentation [facility] [place] Family Medicine [address] [place] [address] Family Medicine, Physician [address] [place], [place] [phone] Social History Tobacco Use Types Packs/Day Years [...] on filedocumented in this encounter Care Teams Associate Sales Manager Relationship Specialty Start Date End Date Monika Henley NP PCP - General 12/25/16 documented as of this encounter
--- OUTSIDE RECORDS SUMMARY | 2024-09-25 15:43 | XMS_ITS | Encounter Summary ---
Author Organization [facility] Address [address] [place], [place] [address] Phone Care Team Providers Care Drapery Estimator Name Role Phone Monika Henley NP Primary Care Provider Encounter Details Date Type Department Care Team (Late st Contact Info) Description 11/20/2014 Documentation [facility] Family Medicine [address] [place] [address] Family Medicine, Physician [address] [place], [place] [phone] Social History Tobacco Use Types Packs/Day Years [...] on filedocumented in this encounter Care Teams Drapery Estimator Relationship Specialty Start Date End Date Monika Henley NP PCP - General 12/25/16 documented as of this encounter
--- OUTSIDE RECORDS SUMMARY | 2024-09-25 15:43 | XMS_ITS | Clinical Summary ---
Author Organization [facility] Address [address] [place] [address] Care Team Providers Care Bone Tender Name Role Phone Jacinta Mayes MD Primary Care Provider [phone] Allergies No known active allergies Medications amphetamine-de [...] age to complete this topic Care Teams Bone Tender Relationship Specialty Start Date End Date Jacinta Mayes MD [address] [place] [address] PCP - General Internal Medicine 04/14/21
--- OUTSIDE RECORDS SUMMARY | 2024-09-25 15:43 | XMS_ITS | Encounter Summary ---
Author Organization [facility] Address [address] [place], [place] [address] Phone Care Team Providers Care Account Installer Name Role Phone Monika Henley NP Primary Care Provider [phone] Encounter Details Date Type Department Care Team (Late st Contact Info) Description 08/19/2012 Documentation [facility] [place] Family Medicine [address] [place] [address] Family Medicine, Physician [address] [place], [place] [phone] Social History Tobacco Use Types Packs/Day Years [...] on filedocumented in this encounter Care Teams Account Installer Relationship Specialty Start Date End Date Monika Henley NP PCP - General 12/25/16 documented as of this encounter
--- OUTSIDE RECORDS SUMMARY | 2024-09-25 15:43 | XMS_ITS | Clinical Summary ---
Author Organization [facility] Address [address] [place], [place] [address] Phone Care Team Providers Care Anesthesia Tech Name Role Phone Monika Henley ANT Primary Care Provider [phone] Medications Beclomethasone Diprop HFA (QVAR REDIHALER) 80 [...] complete this topic Procedures * Due to [place] [employer] law, this organization might not be sharing sensitive test results. Procedure Name Priority Date/Time Associated Diagnosis Comments CHLAMYDIA AND GONORRHEA, AMPLIFIED Routine 01/04/2017 2:18 PM EDT from Last 3 Months or Most Recently Relevant to Health Maintenance Results * Due to [place] [employer] law, this organization might not be sharing sensitive test results. * Chlamydia and Gonorrhoea, Amplified (01/04/2017 2:18 PM EDT) URINE GC AMP PROBE NEGATIVE (NEG) [facility] Comment: No Neisseria Gonorrhoeae RNA detected in this patient's sample (REFERENCE RANGE/NORMAL VALUE: NOT DETECTED) NOTE: This test uses compressor battery pellets-mediated amplification method to detect rRNA from C.Trachomatis [...] without risk of sexual abuse. Consult the [facility] if needed. Contact phone number . Therapeutic failure or success cannot be determined with the Aptima Combo2 assay since nucleic acid may persist following appropriate antimicrobial therapy. The Centers for Disease Control and Prevention (CDC) recommends confirmatory retesting using culture or a different nucleic acid amplification test when positive results occur, if indicated. Testing performed or reported by [facility], a Service of [facility], [place] [address] CLIA ??[id number] Michael Casillas MD, PhD, Dining Room Hostess URINE CHLAMYDIA AMP PROBE NEGATIVE (NEG) [facility] Comment: No Chlamydia Trachomatis RNA detected in this patient's sample (REFERENCE RANGE/NORMAL VALUE: NOT DETECTED) 01/04/2017 2:18 PM EDT Narrative [facility] - 01/04/2017 2:18 PM EDT URINE CHLAMYDIA GC AMP PROBE us Monika Henley NP LAB MICROBIOLOGY - GENERAL ORDER KYRA Final Result [facility] [address] [place] [address], from Last 3 Months or Most Recently Relevant to Health Maintenance Insurance [facility] NON PCC Care Teams Anesthesia Tech Relationship Specialty Start Date End Date Monika Henley NP PCP - General 12/25/16
--- OUTSIDE RECORDS SUMMARY | 2024-09-25 15:43 | XMS_ITS | Encounter Summary ---
Author Organization [facility] Address [address] [place], [place] [address] Phone Care Team Providers Care Electro Mechanical Engineer Name Role Phone Monika Henley NP Primary Care Provider [phone] Encounter Details Date Type Department Care Team (Late st Contact Info) Description 11/30/2016 Documentation [facility] Family Medicine [address] [place] [address] Family Medicine, Physician [address] [place], [place] [phone] Social History Tobacco Use Types Packs/Day Years [...] on filedocumented in this encounter Care Teams Electro Mechanical Engineer Relationship Specialty Start Date End Date Monika Henley NP PCP - General 12/25/16 documented as of this encounter
[2024-09-25 18:25] LABS: Bacterial Vaginosis PCR NEGATIVE (Negative); Candida Group PCR DETECTED (Not Detect); Candida glab krusei PCR NOT DETECTED (Not Detect); Trichomonas vaginalis PCR NOT DETECTED (Not Detect)
[2024-09-25 18:57] LABS: CT PCR NOT DETECTED (Not Detect.); NG PCR NOT DETECTED (Not Detect.)
== END 2024-09-25 14:31 | disposition home or self-care (01) ==
LOC: HO.LNP 14:30
PROVIDERS: PCP Internal Medicine; Visit Provider Advanced Practice Midwife
DX: B37.31 Acute candidiasis of vulva and vagina (principal)
CPT/HCPCS: 81515; 87491; 87591

== ENCOUNTER 2024-09-25 14:30 | Outpatient (AMB) | payer BC, SELFPAY ==
--- OUTSIDE RECORDS SUMMARY | 2024-09-25 14:39 | XMS_ITS | Clinical Summary ---
Author Organization [facility] Address [address] [place], [place] [address] Phone Care Team Providers Care Vp Emerging Media Name Role Phone Monika Henley ANT Primary Care Provider Medications Beclomethasone Diprop HFA (QVAR REDIHALER) 80 [...] complete this topic Procedures * Due to [employer] law, this organization might not be sharing sensitive test results. Procedure Name Priority Date/Time Associated Diagnosis Comments CHLAMYDIA AND GONORRHEA, AMPLIFIED Routine 01/04/2017 2:18 PM EDT from Last 3 Months or Most Recently Relevant to Health Maintenance Results * Due to [place] [employer] law, this organization might not be sharing sensitive test results. * Chlamydia and Gonorrhoea, Amplified (01/04/2017 2:18 PM EDT) URINE GC AMP PROBE NEGATIVE (NEG) [facility] Comment: No Neisseria Gonorrhoeae RNA detected in this patient's sample (REFERENCE RANGE/NORMAL VALUE: NOT DETECTED) NOTE: This test uses table games supervisor-mediated amplification method to detect rRNA from C.Trachomatis [...] without risk of sexual abuse. Consult the [facility] if needed. Contact phone number . Therapeutic failure or success cannot be determined with the Aptima Combo2 assay since nucleic acid may persist following appropriate antimicrobial therapy. The Centers for Disease Control and Prevention (CDC) recommends confirmatory retesting using culture or a different nucleic acid amplification test when positive results occur, if indicated. Testing performed or reported by [facility], a Service of [facility], [place] [address] CLIA ??[id number] Michael Casillas MD, PhD, Business Process Lead URINE CHLAMYDIA AMP PROBE NEGATIVE (NEG) [facility] Comment: No Chlamydia Trachomatis RNA detected in this patient's sample (REFERENCE RANGE/NORMAL VALUE: NOT DETECTED) 01/04/2017 2:18 PM EDT Narrative [facility] - 01/04/2017 2:18 PM EDT URINE CHLAMYDIA GC AMP PROBE us Monika Henley NP LAB MICROBIOLOGY - GENERAL ORDER KYRA Final Result [facility] [address] [place] [address], from Last 3 Months or Most Recently Relevant to Health Maintenance Insurance [facility] NON PCC Care Teams Vp Emerging Media Relationship Specialty Start Date End Date Monika Henley NP PCP - General 12/25/16
--- OUTSIDE RECORDS SUMMARY | 2024-09-25 14:39 | XMS_ITS | Encounter Summary ---
Author Organization [facility] Address [address] [place], [place] [address] Phone Care Team Providers Care Clinical Registered Nurse Name Role Phone Monika Henley NP Primary Care Provider [phone] Encounter Details Date Type Department Care Team (Late st Contact Info) Description 07/23/2015 Documentation [facility] [place] [address] [place] [address] Family Medicine, Physician [address] [place], [place] [phone] Social History Tobacco Use Types Packs/Day Years [...] on filedocumented in this encounter Care Teams Clinical Registered Nurse Relationship Specialty Start Date End Date Monika Henley NP PCP - General 12/25/16 documented as of this encounter
--- OUTSIDE RECORDS SUMMARY | 2024-09-25 14:39 | XMS_ITS | Encounter Summary ---
Author Organization [facility] Address [address] [place], [place] [address] Phone Care Team Providers Care Pharmacy Tech Name Role Phone Monika Henley NP Primary Care Provider [phone] Encounter Details Date Type Department Care Team (Late st Contact Info) Description 11/30/2016 Documentation [facility] [place] Family [place] [address] [place] [address] Family Medicine, Physician [address] [place], [place] [phone] Social History Tobacco Use Types Packs/Day Years [...] on filedocumented in this encounter Care Teams Pharmacy Tech Relationship Specialty Start Date End Date Monika Henley NP PCP - General 12/25/16 documented as of this encounter
--- OUTSIDE RECORDS SUMMARY | 2024-09-25 14:39 | XMS_ITS | Encounter Summary ---
Author Organization [facility] Address [address] [place] [address] Phone Care Team Providers Care Line Tender Flakeboard Name Role Phone Monika Henley NP Primary Care Provider [phone] Encounter Details Date Type Department Care Team (Late st Contact Info) Description 12/31/2016 Conversion Encounter [facility] - [address] [address] Social History Tobacco Use Types Packs/Day Years [...] on filedocumented in this encounter Care Teams Line Tender Flakeboard Relationship Specialty Start Date End Date Monika Henley NP PCP - General 12/25/16 documented as of this encounter
--- OUTSIDE RECORDS SUMMARY | 2024-09-25 14:39 | XMS_ITS | Encounter Summary ---
Author Organization [facility] Address [address] [place], [place] [address] Phone Care Team Providers Care Formation Testing Operator Name Role Phone Monika Henley NP Primary Care Provider [phone] Encounter Details Date Type Department Care Team (Late st Contact Info) Description 11/20/2014 Documentation [facility] [place] Family Medicine [address] [place] [address] Family Medicine, Physician [address] [place], [place] [phone] Social History Tobacco Use Types Packs/Day Years [...] on filedocumented in this encounter Care Teams Formation Testing Operator Relationship Specialty Start Date End Date Monika Henley NP PCP - General 12/25/16 documented as of this encounter
--- OUTSIDE RECORDS SUMMARY | 2024-09-25 14:39 | XMS_ITS | Encounter Summary ---
Author Organization [facility] Address [address] [place], [place] [address] Phone Care Team Providers Care Pressure Tester Operator Name Role Phone Monika Henley NP Primary Care Provider [phone] Encounter Details Date Type Department Care Team (Late st Contact Info) Description 08/19/[address] [facility] [place] Medicine [address] [place] [address] Family Medicine, Physician [address] [place], [place] [phone] Social History Tobacco Use Types Packs/Day Years [...] on filedocumented in this encounter Care Teams Pressure Tester Operator Relationship Specialty Start Date End Date Monika Henley NP PCP - General 12/25/16 documented as of this encounter
--- OUTSIDE RECORDS SUMMARY | 2024-09-25 14:39 | XMS_ITS | Encounter Summary ---
Author Organization [facility] Address [address] [place], [place] [address] Phone Care Team Providers Care Library Technical Assistant Name Role Phone Monika Henley NP Primary Care Provider [phone] Encounter Details Date Type Department Care Team (Late st Contact Info) Description 01/23/2014 Documentation [facility] [place] Family Medicine [address] [place] [address] Family Medicine, Physician [address] [place], [place] [phone] Social History Tobacco Use Types Packs/Day Years [...] on filedocumented in this encounter Care Teams Library Technical Assistant Relationship Specialty Start Date End Date Monika Henley NP PCP - General 12/25/16 documented as of this encounter
--- OUTSIDE RECORDS SUMMARY | 2024-09-25 14:39 | XMS_ITS | Clinical Summary ---
Author Organization [facility] ity Address [address] [place] [address] Care Team Providers Care Cost Clerk Name Role Phone Jacinta Mayes MD Primary Care Provider [phone] Allergies No known active allergies Medications amphetamine-de [...] age to complete this topic Care Teams Cost Clerk Relationship Specialty Start Date End Date Jacinta Mayes MD [address] [place] [address] PCP - General Internal Medicine 04/14/21
--- OUTSIDE RECORDS SUMMARY | 2024-09-25 14:39 | XMS_ITS | Encounter Summary ---
Author Organization [facility] Address [address] [place], [place] [address] Phone Care Team Providers Care Network Development Coordinator Name Role Phone Monika Henley NP Primary Care Provider [phone] Encounter Details Date Type Department Care Team (Late st Contact Info) Description 04/25/2012 Documentation [facility] [place] [address] [place] [address] Family Medicine, Physician [address] [place], [place] [id number] Social History Tobacco Use Types Packs/Day Years [...] on filedocumented in this encounter Care Teams Network Development Coordinator Relationship Specialty Start Date End Date Monika Henley NP PCP - General 12/25/16 documented as of this encounter
[2024-09-25 14:46] VITALS: BP 102/64; BMI 31.3
--- NOTE | 2024-09-25 14:46 | MHC.OFFVIS ---
Vital Signs 09/25/24 14:46 Height 4 ft 10 in Weight 150 lb BMI 31.3 BP 102/64 Blood Pressure Location Lt brachial Position Sitting Intake Visit Reasons: vaginitis Allergies No Known Allergies [No Known Allergies*] Allergy (Verified 11/26/23 13:06) PFSH Medical History Tibia/fibula fracture Depression with anxiety PTSD (post-traumatic stress disorder) Insomnia Asthma ADHD Family History Father Cardiac disease Diabetes Paternal Grandfather Cardiac disease Blood clotting disorder Mother Immune deficiency disorder Social History Household Members: Family Housing: House Alcohol intake: never Patient Tobacco Use Status: Never used Tobacco Sexual orientation: Straight/Heterosexual Gender identity: Female Female Reproductive History Menstrual Age of Menarche: 13 Coding
--- NOTE | 2024-09-25 14:56 | MHC.OFFVIS ---
Vital Signs 09/25/24 14:46 Height 4 ft 10 in Weight 150 lb BMI 31.3 BP 102/64 Blood Pressure Location Lt brachial Position Sitting Intake Visit Reasons: vaginitis Sports Internship Required: No Allergies No Known Allergies [No Known Allergies*] Allergy (Verified 09/25/24 14:57) Medication List - Last Reconciled 09/25/24 by Susie Coates CNM medroxyprogesterone 150 mg IM [id number] 3 months Is last menstrual period known: No Post menopausal: No Patient : No HPI HPI vaginitis: Details: Patient is here because she started having some vaginal itching on Wednesday night she talked to a co-worker and she did use a Monistat and some tucks but the Monistat moffett so she stopped. It was Monistat 3. She has not had a yeast infection in a few years but a reminds her of when she was getting them a lot before she had her son. She is on Depo-Provera she has no real worries about STDs but accepts testing while where at it. She also has noticed a little freckle at her vulva that she did not notice before. [facility] Medical History Tibia/fibula fracture Depression with anxiety PTSD (post-traumatic stress disorder) Insomnia Asthma ADHD Family History Father Cardiac disease Diabetes Paternal Grandfather Cardiac disease Blood clotting disorder Mother Immune deficiency disorder Social History Household Members: Family Housing: House Alcohol intake: never Patient Tobacco Use Status: Never used Tobacco Patient : No Sexual orientation: Straight/Heterosexual Gender identity: Female Female Reproductive History Menstrual Age of Menarche: 13 control method: progesterone injection Total pregnancies: 2 Full term: 1 Number of Living Children: 1 Ab induced: 1 History of STI: Yes Physical Exam Vital Signs: Last Vital Signs BP 102/64 09/25/24 14:46 BMI result Body Mass Index 31.3 Other: External exam within normal limits evidence of previously used Monistat cream at vulva. Labia minora slightly pink and inflamed but not swollen. Vagina pink moist with lots of curd of yellow white discharge consistent with yeast infection. External Female Exam: normal external appearance (vulva swollen and enflamed, surface appears dry, disch c/w yeast ) and normal appearance of the urethra Speculum Exam - Vagina: normal appearance of the vagina and normal vaginal discharge (c/w yeast) Speculum Exam - Cervix: normal appearance of the cervix Assessment & Plan Assessment & Plan (1) Depo-Provera contraceptive status: Code(s): Z30.42 - Encounter for surveillance of injectable contraceptive Category: Social Hx (2) Yeast infection involving the vagina and surrounding area: Code(s): B37.31 - Acute candidiasis of vulva and vagina Category: Medical Plan Teaching done about yeast infection she normally does not wear underwear she wears different material pants for work. She does get sweaty at work. Discussed the options of Monistat 7 but she prefers Diflucan prescribed for her and she may repeat the dose in 3 days if she is still got any vaginal itching or burning. I also ordered a refill for her. She gets Depo-Provera here and she is up-to-date with that and she says she has a next appointment scheduled Medications: New fluconazole may repeat second dose 72 hrs after first dose if symptoms persist 150 mg PO Q3D 2 doses 2 tabs 1RF Coding Level of Care Code Est Pt Level 3 (63617) Diagnoses Depo-Provera contraceptive status Z30.42 Yeast infection involving the vagina and surrounding area B37.31
== END 2024-09-25 17:18 ==
LOC: HO.HWS 14:30
PROVIDERS: PCP Internal Medicine; Visit Provider Advanced Practice Midwife
DX: Z30.42 Encounter for surveillance of injectable contraceptive (principal); B37.31 Acute candidiasis of vulva and vagina
CPT/HCPCS: 99213

== ENCOUNTER 2024-12-13 11:31 | Outpatient (AMB) | payer BC, SELFPAY ==
--- NOTE | 2024-12-13 11:50 | AM.OFFVISNUR ---
Vital Signs 12/13/24 12:01 Height 4 ft 10 in Weight 155 lb BMI 32.4 Intake Visit Reasons: DEPO/time ok per Shy Allergies No Known Allergies (No Known Allergies*) Allergy (Verified 09/25/24 14:57) Nursing Note Patient here for depo provera injection with required 12 week time frame. Patient had no concerns. Patient will schedule next injection in 12 weeks. Office Procedures Depo Questionnaire If YES to any of the following questions, please consult a provider. Date of last injection: 09/24/24 Date of last gynecology exam: 11/29/24 Menstrual pattern since last injection has been: Not Applicable Irregular bleeding?: Not Applicable Breast lumps or other breast changes?: No Changes in weight or appetite?: No Depression or changes in mood?: No Abnormal hair growth or loss?: No Skin problems (rash, acne, discoloration)?: No Pain at the injection site?: No Headaches?: No Nervousness?: No Abdominal pain or cramping?: No Dizziness or nausea?: No Fatigue or weakness?: No Decrease in sexual drive?: No Chest pain or shortness of breath?: No Swelling in arms or legs?: No Any other problems or concerns?: no concern Form completed by?: Cristy Lee LPN Office Meds Depo-Provera 150 mg/mL intramuscular syringe Performing Provider: Libertad Bejarano CNM Performing [facility] [facility] Administered by: Cristy Lee LPN on 12/13/24 11:50 Dose Route Admin Location Dispensed Lot Number Expiration Date [facility] Business Quality Assurance Analyst 150 mg IM left deltoid 1 mL [id number] 02/13/26 13283-972-95 Ajaline Total Dispensed Waste 1 mL 0 % Assessment & Plan Assessment & Plan Orders: Orders AMB Medroxyprogesterone Injection Patient Supplied Today Z30.9 - Encounter for contraceptive management, unspecified Coding Level of Care Code Established Pt Est Pt Level 1 (50009) Patient Type Established History Problem Focused Exam Problem Focused Medical Decision Making Straight Forward Time Spent (min) 20
[2024-12-13 12:01] VITALS: BMI 32.4
--- OUTSIDE RECORDS SUMMARY | 2024-12-13 12:33 | XMS_ITS | Clinical Summary ---
Author Organization [facility] Address [address] [place] [address] Care Team Providers Care Interline Clerk Name Role Phone Jacinta Mayes MD Primary Care Provider [phone] Allergies No known active allergies Medications amphetamine-de [...] 5 Years) and At-Risk Patients (6 to 49 Years) (1 of 2 - PCV) 08/22/2015 Cervical Cancer Screening: Pap Smear 2017 HIV Screening 04/14/2022 Hepatitis C Screening 04/14/2022 Social Influencers of Health Screening 04/14/2022 COVID-19 Vaccine ( season) 2024 Depression Screening 05/17/2024 Influenza Vaccine (#1) 2025 02/24/2006, 1997 Hepatitis B Vaccines Completed 02/28/1997, 1996, 1996 [...] age to complete this topic Care Teams Interline Clerk Relationship Specialty Start Date End Date Jacinta Mayes MD [address] [place] [address] PCP - General Internal Medicine 04/14/21
--- OUTSIDE RECORDS SUMMARY | 2024-12-13 12:33 | XMS_ITS ---
Author Name [facility] Organization Unknown Care Team Organization Name Specialty Phone Email Start Date End Da te [facility] Jacinta Mayes Primary Care 03/24/2022 4
--- OUTSIDE RECORDS SUMMARY | 2024-12-13 12:33 | XMS_ITS | Encounter Summary ---
Author Organization [facility] Address [address] [place], [place] [address] Phone Care Team Providers Care Advertising Material Distributor Name Role Phone Monika Henley NP Primary Care Provider [phone] Encounter Details Date Type Department Care Team (Late st Contact Info) Description 04/25/2012 Documentation [facility] [place] Family Medicine [address] [place] [address] Family Medicine, Physician [address] [place], [place] [phone] Social History Tobacco Use Types Packs/Day Years [...] on filedocumented in this encounter Care Teams Advertising Material Distributor Relationship Specialty Start Date End Date Monika Henley NP PCP - General 12/25/16 documented as of this encounter
== END 2024-12-13 11:46 | disposition home or self-care (01) ==
LOC: HO.HWS 11:32
PROVIDERS: PCP Internal Medicine; Visit Provider Advanced Practice Midwife
DX: Z30.9 Encounter for contraceptive management, unspecified (principal)
CPT/HCPCS: 99211

== ENCOUNTER → 2024-12-13 11:31 | Outpatient (BNVA) | payer BC, SELFPAY | PROVIDERS: PCP Internal Medicine; Visit Provider Advanced Practice Midwife | DX: Z30.013 Encounter for initial prescription of injectable contraceptive (principal) | CPT/HCPCS: 96372; J1050 ==

== ENCOUNTER → 2025-03-07 13:04 | Outpatient (BNVA) | payer BC, SELFPAY | PROVIDERS: PCP Internal Medicine; Visit Provider Advanced Practice Midwife | DX: Z30.42 Encounter for surveillance of injectable contraceptive (principal) | CPT/HCPCS: 96372; J1050 ==